=== PATIENT | male | born 1950 | race Caucasian/White ===

== ENCOUNTER → 2021-11-27 | Outpatient (CLI) | payer OTHER ==
[2021-11-27 11:02] LABS: ABSOLUTE BASOPHILS 0.1 thou/uL (0.0-0.2); ABSOLUTE EOSINOPHILS 0.2 thou/uL (0.0-0.7); ABSOLUTE LYMPHOCYTES 1.8 thou/uL (0.8-5.3); ABSOLUTE NEUTROPHILS 6.1 thou/uL (1.6-8.1); BASOPHILS 0.8 %; EOSINOPHILS 2.3 %; HEMATOCRIT 47.2 % (42.0-52.0); HEMOGLOBIN 15.8 gm/dL (14.0-18.0); LYMPHOCYTES 19.2 %; MCH 29.1 pg (26.0-34.0); MCHC 33.5 g/dL (28.0-37.0); MCV 86.9 fL (80.0-100.0); MONOCYTES 10.8 %; MPV 7.4 fl. (7.2-11.1); NUCLEATED RBCS 0 /100WBC; PLATELET COUNT* 361 thou/uL (150-400); POLYS 66.9 %; RBC 5.43 mil/uL (4.50-6.00); RDW-CV 13.2 % (10.5-14.5); WBC 9.1 thou/uL (4.0-11.0)
[2021-11-27 11:19] LABS: ALBUMIN 3.5 g/dL (3.4-5.0); CALCIUM 8.7 mg/dL (8.5-10.1); CREATININE 1.1 mg/dL (0.6-1.3); POTASSIUM 4.6 mmol/L (3.5-5.1); TOTAL BILIRUBIN 0.9 mg/dL (<0.1-1.0); TOTAL PROTEIN 7.3 g/dL (6.4-8.2)
== END ==
LOC: M.LAB 10:24
PROVIDERS: ATTEND Internal Medicine
DX: I48.91 Unspecified atrial fibrillation (principal); R06.02 Shortness of breath

== ENCOUNTER → 2022-01-02 | Outpatient (CLI) | payer OTHER ==
[2022-01-02] VITALS (8 sets, daily range): BP systolic 93–145; BP diastolic 58–92
[~2022-01-02] MED LIST: DILTIAZEM ER180 M2 PO; FINASTERIDE5 MG PO; FISH OIL 1,0001 EAC1 PO; FLOMAX0.4 MG PO; LIPITOR40 MG PO; TAMBOCOR 100 M100 M1 PO; VITAMIN D3 PO; XARELTO20 MG PO
--- NOTE | ~2022-01-02 | CARD ---
[address] [address] CARDIAC CATH REPORT Name: MINERVA TOVAR Room: [facility]#: [id number] Admission: 01/02/22 Attend Phys: Heladio Rausch MD Discharge: Date of : 46 Report #: [id number] THIS REPORT FOR: cc: Carlie Cifuentes,Heladio Jiménez MD FACC ~ cc: Carlie Cifuentes DATE OF SERVICE: 01/02/2022 PROCEDURE: DC cardioversion. INDICATION: Persistent atrial flutter. DESCRIPTION OF PROCEDURE: After informed consent was obtained, the patient was brought to the cardiac holding area. The patient was given intravenous Versed and fentanyl for conscious sedation. The patient received 3 mg of IV Versed and 75 mcg of IV fentanyl. Once conscious sedation was achieved, the patient was cardioverted from atrial flutter to normal sinus rhythm with a single biphasic shock of 300 joules. The patient tolerated the procedure well without complication. IMPRESSION: 1. Persistent atrial flutter. 2. Successful direct current cardioversion to normal sinus rhythm. By: [id number] Rausch MD, FACC /nt
--- NOTE | 2022-01-02 12:37 | EKG ---
[place] [address] ELECTROCARDIOGRAM REPORT Name: TOVARMINERVA Joie Room: [facility]#: [id number] Admission: 01/02/22 Attend Phys: Heladio Rausch, Discharge: Date of : 46 Date of Service: 01/02/22 1030 Report #: [id number] THIS REPORT FOR: //name// [facility] Test Date: 2022-01-02 Test Time: 10:30:54 Pat Name: MINERVA TOVAR Department: Room: Gender: [facility] Consultant: : [id number] Requested By: Heladio Rausch Order Number: [id number] Reading MD: Naresh Guillen Measurements Intervals [place] Rate: 83 P: [place]: QRS: -56 QRSD: 123 T: -84 QT: 447 QTc: 526 Interpretive Statements Atrial flutter Nonspecific IVCD with LAD Left ventricular hypertrophy Nonspecific T abnormalities, inferior leads No previous ECG available for comparison Electronically Signed On 01-02-2022 12:37:06 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
== END | disposition home or self-care (01) ==
LOC: M.CL 10:10
PROVIDERS: ATTEND Internal Medicine Cardiovascular Disease
DX: I48.92 Unspecified atrial flutter (principal); I48.91 Unspecified atrial fibrillation; Z98.890 Other specified postprocedural states; Z79.899 Other long term (current) drug therapy; Z79.01 Long term (current) use of anticoagulants